=== PATIENT | male | born 1955 | race African-American/Black ===

== ENCOUNTER 2025-01-27 13:00 | Emergency (ER) | payer MEDICARE, MEDICAID ==
[~2025-01-27] VITALS: Ht 180.3 cm; Wt 64.0 kg
[~2025-01-27 13:00] MED LIST: ASPI-1406 PO; ATOR-2 PO; CLOP-31 PO; EZET10TA81 MT; INSU100I28 SQ; METF-416 PO; PIOG45TA64 PO; QUET25TA36 PO; SITA100T11 PO; TRAZ-252 MT
[2025-01-27 13:04] VITALS: O2SAT 97
[2025-01-27 13:55] LABS: BASOPHILS % 0.8 % (0.0-2.0); EOSINOPHILS % 0.6 % (0.0-5.0); HEMATOCRIT. 44.4 % (42.0-52.0); HEMOGLOBIN. 14.6 g/dL (14.0-18.0); LYMPHOCYTES % 11.0 % (20.0-50.0); MEAN PLATELET VOLUME 8.6 fl (7.4-10.4); MONOCYTES % 10.2 % (2.0-8.0); NEUTROPHILS % 77.4 % (40.0-76.0); PLATELET 212 x1000/uL (130-400); RED BLOOD CELL COUNT 5.13 mill/uL (4.7-6.1); RED CELL DISTRIBUTION WIDTH 14.5 % (11.6-14.6)
[2025-01-27 14:18] LABS: CREATININE 1.2 mg/dL (0.6-1.3); UREA NITROGEN BLOOD 7 mg/dL (9-23)
[2025-01-27 14:19] LABS: TROPONIN I HIGH SENSITIVITY 6 ng/L (3.0-53)
[2025-01-27 14:20] LABS: ASPARTATE AMINOTRANSFERASE 11 IU/L (<34); BILIRUBIN DIRECT < 0.1 mg/dL (<=3.0)
[2025-01-27 14:21] LABS: BILIRUBIN TOTAL 0.2 mg/dL (0.1-1.0); PROTEIN TOTAL 7.1 g/dL (6.0-8.3)
[2025-01-27 15:47] VITALS: BP 158/75; PULSE 85; RESP 18; O2SAT 99
== END 2025-01-27 15:48 | disposition home or self-care (01) ==
LOC: ER 13:00
DX: E11.649 Type 2 diabetes mellitus with hypoglycemia without coma (principal); I10 Essential (primary) hypertension; F10.90 Alcohol use, unspecified, uncomplicated; Z79.02 Long term (current) use of antithrombotics/antiplatelets; Z79.4 Long term (current) use of insulin; Z79.82 Long term (current) use of aspirin; Z79.84 Long term (current) use of oral hypoglycemic drugs; Z79.899 Other long term (current) drug therapy; Y90.9 Presence of alcohol in blood, level not specified
CPT/HCPCS: 36415; 80048; 80076; 83735; 84484; 85025; 93005; 99284